=== PATIENT | female | born 1965 | race Caucasian/White ===

== ENCOUNTER 2016-06-06 00:48 | Inpatient (IN) | payer OTHER ==
[~2016-06-06] VITALS: Ht 157.5 cm; Wt 69.6 kg
[2016-06-06 03:02] VITALS: Ht 157.5 cm; Wt 69.6 kg
[2016-06-06 03:03] VITALS: BP 158/94; PULSE 110; RESP 18
[2016-06-06] MEDS ORDERED: ACETAMINOPHEN 325 MG TAB PO PRN (04:00)
[2016-06-06] MEDS ORDERED: ALBUTEROL/IPRATROPIUM (NEB) 3 ML AMP HHN PRN (04:00)
[2016-06-06] MEDS: morphine 2 MG INJ IV PRN ×3 (04:04→23:09)
[2016-06-06] MEDS: AMLODIPINE 5 MG TAB PO SCH ×2 (04:04→08:30)
[2016-06-06] MEDS: LEVOFLOXACIN 500MG/D5W (PMX) 100 ML IVPB SCH (04:05)
[2016-06-06] MEDS: ALBUTEROL/IPRATROPIUM (NEB) 3 ML AMP HHN SCH ×5 (05:16→21:00)
[2016-06-06 05:31] LABS: ADD SCAN DIFF NO
[2016-06-06] MEDS: METHYLPREDNISOLONE 125 MG INJ IV SCH ×4 (05:44→23:09)
[2016-06-06] MEDS: PANTOPRAZOLE 40 MG INJ IV SCH (05:44)
[2016-06-06 05:45] LABS: BASOPHILS % 0.4 % (0.0-2.0); EOSINOPHILS % 0.1 % (0.0-7.0); HEMATOCRIT 40.3 % (37.0-47.0); HEMOGLOBIN 13.3 g/dl (12.0-16.0); LYMPHOCYTES # 0.9 10^3/ul (0.8-2.9); MEAN CORPUSCULAR HEMOGLOBIN 28.5 pg (29.0-33.0); MEAN CORPUSCULAR VOLUME 86.3 fl (82.0-101.0); MEAN PLATELET VOLUME 11.2 fl (7.4-10.4); MONOCYTE # 0.2 10^3/ul (0.3-0.9); MONOCYTES % 2.8 % (0.0-11.0); NEUTROPHIL # 6.7 10^3/ul (1.6-7.5); NEUTROPHILS % 85.3 % (39.0-77.0); PLATELET COUNT 285 10^3/UL (140-415); RED BLOOD COUNT 4.67 10^6/ul (4.20-5.40); RED CELL DISTRIBUTION WIDTH 13.4 % (11.5-14.5); WHITE BLOOD COUNT 7.8 10^3/ul (4.8-10.8)
[2016-06-06 06:05] LABS: ALBUMIN 4.4 g/dl (3.3-4.9); POTASSIUM 3.7 mmol/L (3.5-5.1)
[2016-06-06 06:07] LABS: CREATININE 0.6 mg/dl (0.44-1.00)
[2016-06-06 06:08] LABS: ALBUMIN/GLOBULIN RATIO 1.46; TOTAL PROTEIN 7.4 g/dl (6.1-8.1)
[2016-06-06 06:09] LABS: CALCIUM 9.3 mg/dl (8.4-10.2)
[2016-06-06 07:07] VITALS: BP 152/86; RESP 15
--- NOTE | 2016-06-06 12:45 | PN ---
Date/Time of Note Date/Time of Note DATE: 06/06/16 TIME: 12:42 Assessment/Plan VTE Prophylaxis VTE Prophylaxis Intervention: SCD's Lines/Catheters IV Catheter Type (from [facility]): Saline Lock Assessment/Plan Chief Complaint/Hosp Course A/P BA EXACERBATION PLAN HHN STEROD PPI Problems: Subjective 24 Hr Interval Summary Constitutional: no complaints Respiratory: shortness of breath (+,but better) Cardiovascular: no complaints Gastrointestinal: no complaints Genitourinary: no complaints Musculoskeletal: no complaints Exam/Review of Systems Vital Signs Vitals Vital Signs Date Time Temp Pulse Resp B/P Pulse Ox O2 Delivery O2 Flow Rate FiO2 06/06/16 11:17 86 20 94 21 06/06/16 08:56 Nasal Cannula 2.0 06/06/16 07:07 98.3 152/86 Intake and Output 06/05/16 06/05/16 06/06/16 15:00 23:00 07:00 Intake Total 650 ml Output Total 500 ml Balance 150 ml Exam Neck: supple Respiratory: congested cough, diminished breath sounds Cardiovascular: regular rate and rhythm Gastrointestinal: soft Musculoskeletal: nl extremities to inspection Extremities: normal pulses Neurological: CLINICAL STATISTICS MANAGER II-XII intact, nl mental status, nl strength Results Result Diagram: 06/06/16 0440 06/06/16 0440 Results 24 hrs Laboratory Tests Test 06/06/16 04:40 Alanine Aminotransferase (ALT/SGPT) 27 Albumin 4.4 Albumin/Globulin Ratio 1.46 Alkaline Phosphatase 85 Anion Gap 23 H Aspartate Amino Transf (AST/SGOT) 35 Basophils # 0.0 Basophils % 0.4 Blood Urea Nitrogen 10 Calcium Level 9.3 Carbon Dioxide Level 21 Chloride Level 103 Creatinine 0.60 Direct Bilirubin 0.00 Eosinophils # 0.0 Eosinophils % 0.1 Globulin 3.00 Glucose Level 162 Hematocrit 40.3 Hemoglobin 13.3 Indirect Bilirubin 0.0 Lymphocytes # 0.9 Lymphocytes % 11.0 L Mean Corpuscular Hemoglobin 28.5 L Mean Corpuscular Hemoglobin Concent 33.0 Mean Corpuscular Volume 86.3 Mean Platelet Volume 11.2 H Monocytes # 0.2 L Monocytes % 2.8 Neutrophils # 6.7 Neutrophils % 85.3 H Nucleated Red Blood Cells # 0.0 Nucleated Red Blood Cells % 0.0 Platelet Count 285 Potassium Level 3.7 Red Blood Count 4.67 Red Cell Distribution Width 13.4 Sodium Level 143 Total Bilirubin 0.0 L Total Protein 7.4 White Blood Count 7.8 Medications Medications Current Medications Methylprednisolone Sodium Succinate 80 mg 80 mg Q6 IV Last administered on 06/06 12:15; Admin Dose 80 MG; Start 06/06/16 at 06:00 Levofloxacin/ Dextrose (Levaquin 500mg/ D5W 100 ml (Pmx)) 100 ml @ 100 mls/hr Q24H IVPB Last administered on 06/06/16 04:05; Admin Dose 100 MLS/HR; Start at 04:00 Pantoprazole (Protonix Iv) 40 mg DAILY@06 IV Last administered on 06/06/16 05: 44; Admin Dose 40 MG; Start 06/06/16 at 06:00 Amlodipine Besylate (Norvasc) 5 mg DAILY PO Last administered on 06/06/16 08: 30; Admin Dose 5 MG; Start 06/06/16 at 04:00 Morphine Sulfate (morphine) 2 mg Q4H PRN IV PAIN Last administered on 10:57; Admin Dose 2 MG; Start 06/06/16 at 04:00 Acetaminophen (Tylenol Tab) 650 mg Q6H PRN PO PAIN AND OR ELEVATED TEMP Last administered on 06/06/16 04:04; Admin Dose 650 MG; Start 06/06/16 at 04:00 Influenza Virus Vaccine (Fluzone) 0.5 ml ONCE ONCE IM* ; Start 06/08/16 at 09:00 ; Stop 06/08/16 at 09:01 BISI CHAMPION MD Jun 06, 2016 12:45
[2016-06-06 14:00] VITALS: BP 132/74; PULSE 74; RESP 17
[2016-06-06] MEDS: HYDROCODONE/APAP (5/325) TAB PO PRN (15:39)
--- NOTE | 2016-06-06 17:56 | QN ---
Documentation Comment [id number] BISI CHAMPION MD Jun 06, 2016 17:56
[2016-06-06 19:00] VITALS: BP 145/91; RESP 19
--- NOTE | 2016-06-06 19:56 | HP ---
DATE OF ADMISSION: 06/06/2016 HISTORY OF PRESENT ILLNESS: This is a young female who was transferred from [facility] with acute exacerbation of bronchial asthma. Patient has history of bronchial asthma and takes some inhalers; but, she could not get a response from the steroid and they arrived at [facility], so she was transferred here. Sodium 142, potassium 3.7, hematocrit 40.3. PAST MEDICAL HISTORY: Positive for bronchial asthma. ALLERGY HISTORY: NEGATIVE. FAMILY HISTORY: Noncontributory. SOCIAL HISTORY: Negative. MEDICATIONS AT HOME: Not available. REVIEW OF SYSTEMS HEENT: Unremarkable. RESPIRATORY: Shortness of breath, wheezing. CARDIOVASCULAR: No chest pain, palpitation. ABDOMEN: No dyspepsia. EXTREMITIES: No swelling. CENTRAL NERVOUS SYSTEM: Unremarkable. PHYSICAL EXAMINATION: GENERAL: The patient is awake, alert. VITAL SIGNS: Stable. The patient Pulse 80, blood pressure 140/56. HEENT: Head is atraumatic, normocephalic. Pupils equal, reactive to light. HEAD: Atraumatic, normocephalic. Pupils equal, reactive to light. NECK: Supple. No JVD. LUNGS: Clear. Rhonchi and wheezes noted. CARDIOVASCULAR: S1, S2 are normal. ABDOMEN: Soft, nontender. Bowel sounds present. No palpable mass. EXTREMITIES: No cyanosis, clubbing, or edema. CENTRAL NERVOUS SYSTEM: The patient is awake, alert, with no focal deficit. LABORATORY DATA: As mentioned above. Hematocrit 40.3, sodium 140, potassium 3.7. IMPRESSION: Acute bronchial asthma, bronchitis. PLAN: To continue current treatment with oxygen, bronchodilator, steroid. Orders were done. Dictated By: BISI PACHECO/NTS Conf#: [id number] DID#: [id number]
[2016-06-07] MEDS: ALBUTEROL/IPRATROPIUM (NEB) 3 ML AMP HHN SCH ×5 (01:00→21:00)
[2016-06-07] MEDS: LEVOFLOXACIN 500MG/D5W (PMX) 100 ML IVPB SCH (03:07)
[2016-06-07 05:12] LABS: ADD SCAN DIFF NO
[2016-06-07 05:15] LABS: BASOPHILS % 0.2 % (0.0-2.0); HEMATOCRIT 39.7 % (37.0-47.0); HEMOGLOBIN 12.9 g/dl (12.0-16.0); LYMPHOCYTES # 1.3 10^3/ul (0.8-2.9); LYMPHOCYTES % 6.3 % (15.0-51.0); MEAN CORPUSCULAR HGB CONC 32.5 g/dl (32.0-37.0); MEAN CORPUSCULAR VOLUME 86.3 fl (82.0-101.0); MEAN PLATELET VOLUME 11.2 fl (7.4-10.4); MONOCYTE # 0.5 10^3/ul (0.3-0.9); MONOCYTES % 2.2 % (0.0-11.0); NEUTROPHIL # 18.9 10^3/ul (1.6-7.5); NEUTROPHILS % 90.4 % (39.0-77.0); PLATELET COUNT 312 10^3/UL (140-415); RED CELL DISTRIBUTION WIDTH 13.5 % (11.5-14.5); WHITE BLOOD COUNT 20.9 10^3/ul (4.8-10.8)
[2016-06-07] MEDS: METHYLPREDNISOLONE 125 MG INJ IV SCH ×4 (05:25→23:37)
[2016-06-07] MEDS: PANTOPRAZOLE 40 MG INJ IV SCH (05:25)
[2016-06-07 05:27] LABS: POTASSIUM 4.6 mmol/L (3.5-5.1)
[2016-06-07 05:30] LABS: CREATININE 0.77 mg/dl (0.44-1.00)
[2016-06-07 05:31] LABS: CALCIUM 9.4 mg/dl (8.4-10.2)
[2016-06-07] MEDS: morphine 2 MG INJ IV PRN ×2 (05:38→20:05)
[2016-06-07 08:18] VITALS: BP 138/83; RESP 18
[2016-06-07] MEDS: AMLODIPINE 5 MG TAB PO SCH (08:39)
--- NOTE | 2016-06-07 09:54 | PN ---
Date/Time of Note Date/Time of Note DATE: 06/07/16 TIME: 09:50 Assessment/Plan VTE Prophylaxis VTE Prophylaxis Intervention: SCD's Lines/Catheters IV Catheter Type (from Nrs): Peripheral IV Subjective 24 Hr Interval Summary Eyes: visual change ENT: no complaints Respiratory: no complaints Cardiovascular: no complaints Gastrointestinal: constipation Skin: no complaints Neurologic: no complaints Endocrine: no complaints Psychological: no complaints Exam/Review of Systems Vital Signs Vitals Vital Signs Date Time Temp Pulse Resp B/P Pulse Ox O2 Delivery O2 Flow Rate FiO2 06/07/16 08:18 98.1 99 18 138/83 96 06/07/16 05:55 2.0 06/07/16 05:52 Nasal Cannula 06/06/16 16:01 21 Intake and Output 06/06/16 06/06/16 06/07/16 15:00 23:00 07:00 Intake Total 1000 ml 1250 ml Output Total 700 ml 1000 ml Balance 300 ml 250 ml Exam Constitutional: alert, oriented, well developed Psych: no complaints Head: normocephalic Eyes: nl conjunctiva ENMT: nl external ears & nose Neck: non-tender, supple Respiratory: normal air movement Cardiovascular: nl pulses, regular rate and rhythm Gastrointestinal: nl liver, spleen, other, soft Musculoskeletal: nl gait and stance Extremities: normal pulses Neurological: MEDICAL SERVICE REPRESENTATIVE II-XII intact Skin: nl turgor Lymph: nl lymph nodes Results Result Diagram: 06/07/168 06/07/168 Results 24 hrs Laboratory Tests Test 06/07/16 04:28 Anion Gap 18 H Basophils # 0.0 Basophils % 0.2 Blood Urea Nitrogen 19 # Calcium Level 9.4 Carbon Dioxide Level 24 Chloride Level 106 Creatinine 0.77 Eosinophils # 0.0 Eosinophils % 0.0 Glucose Level 181 Hematocrit 39.7 Hemoglobin 12.9 Lymphocytes # 1.3 Lymphocytes % 6.3 L Mean Corpuscular Hemoglobin 28.0 L Mean Corpuscular Hemoglobin Concent 32.5 Mean Corpuscular Volume 86.3 Mean Platelet Volume 11.2 H Monocytes # 0.5 Monocytes % 2.2 Neutrophils # 18.9 H Neutrophils % 90.4 H Nucleated Red Blood Cells # 0.0 Nucleated Red Blood Cells % 0.0 Platelet Count 312 Potassium Level 4.6 Red Blood Count 4.60 Red Cell Distribution Width 13.5 Sodium Level 143 White Blood Count 20.9 #H Medications Medications Current Medications Methylprednisolone Sodium Succinate 80 mg 80 mg Q6 IV Last administered on 06/07 05:25; Admin Dose 80 MG; Start 06/06/16 at 06:00 Levofloxacin/ Dextrose (Levaquin 500mg/ D5W 100 ml (Pmx)) 100 ml @ 100 mls/hr Q24H IVPB Last administered on 06/07/16 03:07; Admin Dose 100 MLS/HR; Start at 04:00 Pantoprazole (Protonix Iv) 40 mg DAILY@06 IV Last administered on 06/07/16 05: 25; Admin Dose 40 MG; Start 06/06/16 at 06:00 Amlodipine Besylate (Norvasc) 5 mg DAILY PO Last administered on 06/07/16 08: 39; Admin Dose 5 MG; Start 06/06/16 at 04:00 Morphine Sulfate (morphine) 2 mg Q4H PRN IV PAIN Last administered on 05:38; Admin Dose 2 MG; Start 06/06/16 at 04:00 Acetaminophen (Tylenol Tab) 650 mg Q6H PRN PO PAIN AND OR ELEVATED TEMP Last administered on 06/06/16 04:04; Admin Dose 650 MG; Start 06/06/16 at 04:00 Influenza Virus Vaccine (Fluzone) 0.5 ml ONCE ONCE IM* ; Start 06/08/16 at 09:00 ; Stop 06/08/16 at 09:01 Acetaminophen/ Hydrocodone Bitart ([place] (5/325)) 1 tab Q6H PRN PO pain Last administered on 06/06/16 15:39; Admin Dose 1 TAB; Start 06/06/16 at 13:30 DA RON Jun 07, 2016 09:54
--- NOTE | 2016-06-07 09:58 | PN ---
Date/Time of Note Date/Time of Note DATE: 06/07/16 TIME: 09:55 Assessment/Plan VTE Prophylaxis VTE Prophylaxis Intervention: SCD's Lines/Catheters IV Catheter Type (from Nrs): Peripheral IV Assessment/Plan Assessment/Plan Continue current treatment with oxygen, bronchodilators, and steroid Exam/Review of Systems Vital Signs Vitals Vital Signs Date Time Temp Pulse Resp B/P Pulse Ox O2 Delivery O2 Flow Rate FiO2 06/07/16 08:18 98.1 99 18 138/83 96 06/07/16 05:55 2.0 06/07/16 05:52 Nasal Cannula 06/06/16 16:01 21 Intake and Output 06/06/16 06/06/16 06/07/16 15:00 23:00 07:00 Intake Total 1000 ml 1250 ml Output Total 700 ml 1000 ml Balance 300 ml 250 ml Results Result Diagram: 06/07/16 0428 06/07/16 0428 Results 24 hrs Laboratory Tests Test 06/07/16 04:28 Anion Gap 18 H Basophils # 0.0 Basophils % 0.2 Blood Urea Nitrogen 19 # Calcium Level 9.4 Carbon Dioxide Level 24 Chloride Level 106 Creatinine 0.77 Eosinophils # 0.0 Eosinophils % 0.0 Glucose Level 181 Hematocrit 39.7 Hemoglobin 12.9 Lymphocytes # 1.3 Lymphocytes % 6.3 L Mean Corpuscular Hemoglobin 28.0 L Mean Corpuscular Hemoglobin Concent 32.5 Mean Corpuscular Volume 86.3 Mean Platelet Volume 11.2 H Monocytes # 0.5 Monocytes % 2.2 Neutrophils # 18.9 H Neutrophils % 90.4 H Nucleated Red Blood Cells # 0.0 Nucleated Red Blood Cells % 0.0 Platelet Count 312 Potassium Level 4.6 Red Blood Count 4.60 Red Cell Distribution Width 13.5 Sodium Level 143 White Blood Count 20.9 #H Medications Medications Current Medications Methylprednisolone Sodium Succinate 80 mg 80 mg Q6 IV Last administered on 06/07 05:25; Admin Dose 80 MG; Start 06/06/16 at 06:00 Levofloxacin/ Dextrose (Levaquin 500mg/ D5W 100 ml (Pmx)) 100 ml @ 100 mls/hr Q24H IVPB Last administered on 06/07/16 03:07; Admin Dose 100 MLS/HR; Start at 04:00 Pantoprazole (Protonix Iv) 40 mg DAILY@06 IV Last administered on 06/07/16 05: 25; Admin Dose 40 MG; Start 06/06/16 at 06:00 Amlodipine Besylate (Norvasc) 5 mg DAILY PO Last administered on 06/07/16 08: 39; Admin Dose 5 MG; Start 06/06/16 at 04:00 Morphine Sulfate (morphine) 2 mg Q4H PRN IV PAIN Last administered on 05:38; Admin Dose 2 MG; Start 06/06/16 at 04:00 Acetaminophen (Tylenol Tab) 650 mg Q6H PRN PO PAIN AND OR ELEVATED TEMP Last administered on 06/06/16 04:04; Admin Dose 650 MG; Start 06/06/16 at 04:00 Influenza Virus Vaccine (Fluzone) 0.5 ml ONCE ONCE IM* ; Start 06/08/16 at 09:00 ; Stop 06/08/16 at 09:01 Acetaminophen/ Hydrocodone Bitart ([place] (5/325)) 1 tab Q6H PRN PO pain Last administered on 06/06/16 15:39; Admin Dose 1 TAB; Start 06/06/16 at 13:30 DA RON Jun 07, 2016 09:58
[2016-06-07] MEDS ORDERED: BISACODYL (EC) 5 MG TAB PO PRN (10:00)
[2016-06-07] MEDS: HYDROCODONE/APAP (5/325) TAB PO PRN ×2 (10:39→17:49)
--- NOTE | 2016-06-07 17:36 | RADRPT ---
Vent Rate: 90 bpm RR Interval: 0 msec TN Interval: 142 msec QRS Duration: 82 msec QT Interval: 346 msec QTC Interval: 423 msec P-R-T [place]: 76 - 67 - 59 degrees Normal sinus rhythm Normal ECG Electronically Signed By: Nick Duff [id number]
[2016-06-07 20:16] VITALS: BP 145/79; RESP 20
[2016-06-08] MEDS: ALBUTEROL/IPRATROPIUM (NEB) 3 ML AMP HHN SCH ×6 (01:01→20:37)
[2016-06-08] MEDS: LEVOFLOXACIN 500MG/D5W (PMX) 100 ML IVPB SCH (04:10)
[2016-06-08] MEDS: METHYLPREDNISOLONE 125 MG INJ IV SCH ×3 (05:47→17:22)
[2016-06-08] MEDS: PANTOPRAZOLE (EC) 40 MG TAB PO SCH (05:47)
[2016-06-08] MEDS: HYDROCODONE/APAP (5/325) TAB PO PRN (05:53)
[2016-06-08 08:20] VITALS: BP 129/75; RESP 19
[2016-06-08] MEDS: AMLODIPINE 5 MG TAB PO SCH (08:51)
[2016-06-08] MEDS ORDERED: INFLUENZA VIRUS VACCINE 0.5 ML (DISPENSING) IM* ONE (09:00)
--- NOTE | 2016-06-08 16:59 | PN ---
Date/Time of Note Date/Time of Note DATE: 06/08/16 TIME: 16:58 Assessment/Plan VTE Prophylaxis VTE Prophylaxis Intervention: other Lines/Catheters IV Catheter Type (from Nrsg): Saline Lock Assessment/Plan Chief Complaint/Hosp Course A/P BA EXACERBATION PLAN HHN STEROD PPI HOME SOON Problems: Subjective 24 Hr Interval Summary Respiratory: shortness of breath (BETTER) Cardiovascular: no complaints Gastrointestinal: no complaints Exam/Review of Systems Vital Signs Vitals Vital Signs Date Time Temp Pulse Resp B/P Pulse Ox O2 Delivery O2 Flow Rate FiO2 06/08/16 11:58 109 22 94 21 06/08/16 08:20 98.2 129/75 06/08/16 08:00 Nasal Cannula 2.0 Intake and Output 06/07/16 06/07/16 06/08/16 15:00 23:00 07:00 Intake Total 1400 ml 1250 ml Output Total 1000 ml 950 ml Balance 400 ml 300 ml Exam Respiratory: diminished breath sounds Cardiovascular: regular rate and rhythm Gastrointestinal: soft Musculoskeletal: nl extremities to inspection Results Result Diagram: 06/07/16 0428 06/07/16 0428 Medications Medications Current Medications Methylprednisolone Sodium Succinate 80 mg 80 mg Q6 IV Last administered on 06/08 12:26; Admin Dose 80 MG; Start 06/06/16 at 06:00 Levofloxacin/ Dextrose (Levaquin 500mg/ D5W 100 ml (Pmx)) 100 ml @ 100 mls/hr Q24H IVPB Last administered on 06/08/16 04:10; Admin Dose 100 MLS/HR; Start at 04:00 Amlodipine Besylate (Norvasc) 5 mg DAILY PO Last administered on 06/08/16 08: 51; Admin Dose 5 MG; Start 06/06/16 at 04:00 Morphine Sulfate (morphine) 2 mg Q4H PRN IV PAIN Last administered on 20:05; Admin Dose 2 MG; Start 06/06/16 at 04:00 Acetaminophen (Tylenol Tab) 650 mg Q6H PRN PO PAIN AND OR ELEVATED TEMP Last administered on 06/06/16 04:04; Admin Dose 650 MG; Start 06/06/16 at 04:00 Acetaminophen/ Hydrocodone Bitart ([place] (5/325)) 1 tab Q6H PRN PO pain Last administered on 06/08/16 05:53; Admin Dose 1 TAB; Start 06/06/16 at 13:30 Bisacodyl (Dulcolax) 5 mg DAILY PRN PO CONSTIPATION Last administered on 10:38; Admin Dose 5 MG; Start 06/07/16 at 10:00 Pantoprazole (Protonix Tab) 40 mg DAILY@06 PO Last administered on 06/08/16 05 :47; Admin Dose 40 MG; Start 06/08/16 at 06:00 BISI CHAMPION MD Jun 08, 2016 16:59
[2016-06-08 20:29] VITALS: BP 147/83; RESP 20
[2016-06-08] MEDS: morphine 2 MG INJ IV PRN (22:19)
[2016-06-09] MEDS: METHYLPREDNISOLONE 125 MG INJ IV SCH ×4 (00:22→17:40)
[2016-06-09] MEDS: ALBUTEROL/IPRATROPIUM (NEB) 3 ML AMP HHN SCH ×5 (00:55→16:05)
[2016-06-09] MEDS: LEVOFLOXACIN 500MG/D5W (PMX) 100 ML IVPB SCH (03:59)
[2016-06-09] MEDS: PANTOPRAZOLE (EC) 40 MG TAB PO SCH (06:36)
[2016-06-09 08:12] VITALS: BP 151/90; RESP 16
[2016-06-09] MEDS: AMLODIPINE 5 MG TAB PO SCH (08:59)
[2016-06-09] MEDS: HYDROCODONE/APAP (5/325) TAB PO PRN (12:36)
--- NOTE | 2016-06-09 16:58 | PDOCDIS ---
Discharge Instructions CONDITION Patient Condition: Stable HOME CARE INSTRUCTIONS: Special Diet: REGULAR ACTIVITY: Activity Restrictions: Slowly Increase Activity FOLLOW UP/APPOINTMENTS Appointments f/u own pcp 1 wk BISI CHAMPION MD Jun 09, 2016 16:58
[2016-06-09] MEDS ORDERED: BISA5TAB6 PO (17:07)
[2016-06-09] MEDS ORDERED: LEVO500T10 PO (17:07)
[2016-06-09] MEDS ORDERED: PANT40TA4 PO (17:07)
[2016-06-09] MEDS ORDERED: MED4DP PO (17:07)
[2016-06-09] MEDS ORDERED: ALBU8.5H3 INH (17:07)
[2016-06-09] MEDS ORDERED: IPRA3AMP HHN (17:07)
[2016-06-09] MEDS ORDERED: FLUT12HF IH (17:07)
[2016-06-10] MEDS ORDERED: LEVOFLOXACIN 500 MG TAB PO SCH (06:00)
== END 2016-06-09 18:30 | disposition home or self-care (01) | DRG 203 ==
LOC: MS1 02:34
PROVIDERS: ADMIT Internal Medicine Nephrology; ATTEND Internal Medicine Nephrology
DX: J45.901 Unspecified asthma with (acute) exacerbation (principal)
CPT/HCPCS: 80048; 80053; 85025; 90686; 93005; 94640; 94664; C9113; J1956; J2270; J2930

== ENCOUNTER 2017-05-04 07:06 | Inpatient (IN) | END 2017-05-09 14:24 | disposition home or self-care (01) | DRG 203 ==